=== PATIENT | male | born 1980 | race African-American/Black ===

== ENCOUNTER 2016-10-25 04:37 | Inpatient (IN) | payer SELFPAY ==
[~2016-10-25] VITALS: Ht 177.8 cm; Wt 81.8 kg
[2016-10-25] VITALS (26 sets, daily range): BP systolic 111–158; BP diastolic 64–98
[2016-10-25] MEDS ORDERED: ETOMIDATE 2 MG/ML VIAL IV ONE ×2 (05:00→11:26)
[2016-10-25] MEDS ORDERED: ROCURONIUM BROMIDE 100 MG/10 ML VIAL IV ONE (05:00)
[2016-10-25 05:18] LABS: BASOPHILS % (AUTO) 0.2 % (0.0-2.0); DIFF TOTAL % 100 %; EOSINOPHILS # (AUTO) 0.1 /CMM (0.0-0.7); EOSINOPHILS % (AUTO) 0.8 % (0.0-6.0); HEMATOCRIT 45 % (39-51); LYMPHOCYTES # (AUTO) 2.1 /CMM (0.8-4.8); LYMPHOCYTES % (AUTO) 25.2 % (20.0-44.0); MEAN CORPUSCULAR HEMOGLOBIN 30 PG (26.0-33.0); MEAN CORPUSCULAR HGB CONC 33 g/dl (31.0-36.0); MEAN CORPUSCULAR VOLUME 91 fL (80-96); MONOCYTES # (AUTO) 0.3 /CMM (0.1-1.30); MONOCYTES % (AUTO) 3.1 % (2.0-12.0); NEUTROPHILS # (AUTO) 5.9 /CMM (1.8-8.9); NEUTROPHILS % (AUTO) 70.7 % (43.0-81.0); PLATELET COUNT (AUTO) 263 /CMM (150-450); RED BLOOD CELL COUNT(AUTO) 4.94 MIL/uL (4.5-6.0); WHITE BLOOD COUNT (AUTO) 8.3 K/uL (4.3-11.0)
[2016-10-25 05:28] LABS: KETONES,URINE NEGATIVE (NEGATIVE); LEUKOCYTE ESTERASE ,URINE NEGATIVE (NEGATIVE); PH,URINE 5.5 (5.0-8.0)
[2016-10-25 05:34] LABS: CANNABINOID, URINE NEGATIVE (NEGATIVE); PHENCYCLIDINE SCREEN,URINE NEGATIVE (NEGATIVE)
[2016-10-25 05:36] LABS: INR 0.95 (0.87-1.13); PROTHROMBIN TIME 10.3 SECS (9.5-12.7); TROPONIN I < 0.017 ng/mL (0.00-0.056)
[2016-10-25 05:43] LABS: ANION GAP 17 (5-14); CALCIUM, SERUM 9.1 mg/dL (8.5-10.1); CARBON DIOXIDE 22 mmol/L (21-32); CHLORIDE 104 mmol/L (98-107); CREATININE 1.1 mg/dL (0.6-1.3); GFR 92 mL/min (>60); GLUCOSE 132 mg/dL (74-106); POTASSIUM 3.7 mmol/L (3.5-5.1); SODIUM SERUM 139 mmol/L (136-145); UREA NITROGEN, BLOOD 9 mg/dL (7-18)
[2016-10-25 05:45] LABS: ADD UA MICROSCOPIC YES
[2016-10-25 05:48] LABS: ADD URINE CULTURE NO; RBC,URINE NONE SEEN /HPF (0-2); WBC,URINE NONE SEEN /HPF (0-3)
[2016-10-25 05:49] LABS: ALANINE AMINOTRANSFERASE 52 U/L (12-78); ALBUMIN 4.1 g/dL (3.4-5.0); ASPARTATE AMINOTRANSFERASE 30 U/L (15-37); BILIRUBIN,TOTAL 0.2 mg/dL (0.2-1.0); SALICYLATE 3.8 mg/dL (2.8-20.0); TOTAL PROTEIN, SERUM 8.2 g/dL (6.4-8.2)
[2016-10-25 05:50] LABS: ACETAMINOPHEN 0 ug/ml (10-30); INDIRECT BILIRUBIN 0.2 mg/dL (0.0-1.1)
[2016-10-25 06:25] LABS: ABG BASE EXCESS -3.5 mmol/L; ABG HCO3 24.1 mmol/L; ABG PCO2 52.9 mmHg (35.0-45.0); ABG PH 7.277 (7.350-7.450); ABG PO2 47.3 mmHg (75.0-100.0); ABG TOTAL HEMOGLOBIN 16.4 G/dL (13.5-18.0); ALLEN TEST A; O2Hb 77.4 % (94.0-97.0)
[2016-10-25] MEDS ORDERED: DIPH25TA50 PO (07:09)
[2016-10-25] MEDS ORDERED: OLAN7.5T3 PO (07:09)
[2016-10-25] MEDS ORDERED: IV SET PRIMARY PUMP SET 1 EA INFUS.SET MC ONE ×2 (07:40→22:50)
[2016-10-25] MEDS ORDERED: IV NS 0.9% 1,000 ML IV PRN (08:30)
[2016-10-25] MEDS: PROPOFOL 100 ML IV PRN ×7 (08:48→23:16)
[2016-10-25 08:50] LABS: ABG BASE EXCESS -4.2 mmol/L; ABG HCO3 21.6 mmol/L; ABG PCO2 42.3 mmHg (35.0-45.0); ABG PH 7.326 (7.350-7.450); ABG PO2 159.6 mmHg (75.0-100.0); ABG TOTAL HEMOGLOBIN 15.5 G/dL (13.5-18.0); ALLEN TEST Pass; O2Hb 94.3 % (94.0-97.0)
[2016-10-25] MEDS ORDERED: ONDANSETRON HCL/PF 4 MG/2 ML VIAL IVP PRN (09:00)
[2016-10-25] MEDS ORDERED: ACETAMINOPHEN 650 MG/SUPP.RECT RC PRN (09:00)
[2016-10-25] MEDS ORDERED: PROPOFOL 100 ML IV PRN (09:00)
[2016-10-25] MEDS: ENOXAPARIN SODIUM 40 MG/0.4 ML DISP.SYRIN SQ SCH (09:49)
[2016-10-25] MEDS: IV D5/0.45 NACL 1,000 ML IV PRN ×2 (09:49→23:16)
[2016-10-25] MEDS ORDERED: ROCURONIUM BROMIDE 50 MG/5 ML IV ONE (11:26)
[2016-10-25] MEDS ORDERED: FEE PK DOSING 1 MIN EA MC ONE (11:27)
[2016-10-25] MEDS ORDERED: SECONDARY IV SET 1 EA INFUS.SET MC ONE (13:11)
[2016-10-25] MEDS: PIPERACILLIN /TAZOBACTAM 3.375 G in IV D5W 50 ML IV SCH ×3 (13:15→23:15)
[2016-10-25] MEDS ORDERED: ACETAMINOPHEN 325 MG TABLET MC PRN (19:00)
[2016-10-26] VITALS (32 sets, daily range): BP systolic 89–170; BP diastolic 53–108
[2016-10-26] MEDS ORDERED: PROPOFOL 100 ML IV ONE (03:41)
[2016-10-26] MEDS: PROPOFOL 100 ML IV PRN (03:46)
[2016-10-26 05:19] LABS: BASOPHILS % (AUTO) 0.5 % (0.0-2.0); DIFF TOTAL % 100 %; EOSINOPHILS # (AUTO) 0.4 /CMM (0.0-0.7); EOSINOPHILS % (AUTO) 4.4 % (0.0-6.0); HEMATOCRIT 47 % (39-51); HEMOGLOBIN 15.7 g/dL (13.5-17.5); LYMPHOCYTES % (AUTO) 23.6 % (20.0-44.0); MEAN CORPUSCULAR HEMOGLOBIN 30 PG (26.0-33.0); MEAN CORPUSCULAR HGB CONC 33 g/dl (31.0-36.0); MEAN CORPUSCULAR VOLUME 91 fL (80-96); MONOCYTES # (AUTO) 0.7 /CMM (0.1-1.30); MONOCYTES % (AUTO) 7.8 % (2.0-12.0); NEUTROPHILS # (AUTO) 5.4 /CMM (1.8-8.9); NEUTROPHILS % (AUTO) 63.7 % (43.0-81.0); PLATELET COUNT (AUTO) 280 /CMM (150-450); WHITE BLOOD COUNT (AUTO) 8.4 K/uL (4.3-11.0)
[2016-10-26 05:36] LABS: ALBUMIN 3.8 g/dL (3.4-5.0); BILIRUBIN,TOTAL 0.4 mg/dL (0.2-1.0); CREATININE 1.4 mg/dL (0.6-1.3); PHOSPHORUS 3.8 mg/dL (2.5-4.9); POTASSIUM 3.9 mmol/L (3.5-5.1); TOTAL PROTEIN, SERUM 7.8 g/dL (6.4-8.2)
[2016-10-26 06:11] LABS: THYROID STIMULATING HORMONE 2.437 uIU/mL (0.358-3.74)
[2016-10-26] MEDS: PIPERACILLIN /TAZOBACTAM 3.375 G in IV D5W 50 ML IV SCH ×2 (06:22→12:00)
[2016-10-26] MEDS: ENOXAPARIN SODIUM 40 MG/0.4 ML DISP.SYRIN SQ SCH (08:27)
[2016-10-26] MEDS ORDERED: MAGNESIUM OXIDE 400 MG TABLET NG SCH (09:00)
[2016-10-26] MEDS ORDERED: FOLIC ACID 1 MG TABLET NG SCH (09:00)
[2016-10-26] MEDS ORDERED: THIAMINE HCL 100 MG TABLET NG SCH (09:00)
[2016-10-26 09:45] LABS: ABG BASE EXCESS 1.5 mmol/L; ABG HCO3 25.9 mmol/L; ABG PCO2 40.3 mmHg (35.0-45.0); ABG PH 7.426 (7.350-7.450); ABG PO2 93.2 mmHg (75.0-100.0); AaDO2 73.4 mmHg; O2Hb 94.7 % (94.0-97.0)
[2016-10-26] MEDS ORDERED: NAPROXEN 500 MG TABLET PO SCH (13:30)
[2016-10-26] MEDS ORDERED: ACETAMINOPHEN 650 MG/20.3 ML UDC NG ONE (16:30)
== END 2016-10-26 16:40 | disposition home or self-care (01) | DRG 917 ==
LOC: ER 04:42 → ICU 07:24
PROVIDERS: ADMIT Nurse Practitioner Acute Care; ATTEND Nurse Practitioner Acute Care
DX: T43.591A Poisoning by other antipsychotics and neuroleptics, accidental (unintentional), initial encounter (principal); J96.92 Respiratory failure, unspecified with hypercapnia; I10 Essential (primary) hypertension; F31.9 Bipolar disorder, unspecified; F10.20 Alcohol dependence, uncomplicated; F41.9 Anxiety disorder, unspecified; F14.10 Cocaine abuse, uncomplicated; T40.5X1A Poisoning by cocaine, accidental (unintentional), initial encounter; T51.8X1A Toxic effect of other alcohols, accidental (unintentional), initial encounter; Y92.9 Unspecified place or not applicable
CPT/HCPCS: 31720; 36415; 36600; 70450-TC; 71010-TC; 72125-TC; 73080-TC; 80048-TC; 80053-TC; 80061-TC; 80076-TC; 80305; 81000-TC; 82140-TC; 82803-TC; 83735-TC; 84100-TC; 84443-TC; 84484-TC; 85025-TC; 85730-TC; 87081-TC; 93307-TC; 94003-TC; 94760-TC; 94799-TC; A4606; G0480; G6039-TC; J1650; J2543; J3490; J7030; J7060; Z7610

== ENCOUNTER 2021-03-18 03:43 | Emergency (ER) | payer MEDICAID ==
[~2021-03-18] VITALS: Ht 177.8 cm; Wt 81.6 kg
[~2021-03-18 03:43] MED LIST: OLAN7.5T3 PO; [UNRECOGNIZED DRUG - CODE] PO
[2021-03-18] MEDS ORDERED: OLANZAPINE 5 MG TABLET PO ONE (04:00)
[2021-03-18] MEDS ORDERED: OLANZAPINE 5 MG TABLET ONE (04:09)
--- NOTE | 2021-03-18 04:22 | NUR ---
PT REFUSING URINE TEST. WILL CONT TO MONITOR PT.
--- NOTE | 2021-03-18 06:12 | NUR ---
pt ok to discharge per dr kim. Patient discharged to home in stable condition. Written and verbal after care instructions given. Patient verbalizes understanding of instruction.Patient is awake and alert to self, day, and place. Pt ambulatory with a steady gait
[2021-03-18 06:20] VITALS: BP 145/85
== END 2021-03-18 06:20 | disposition home or self-care (01) ==
LOC: ER 03:45
DX: F14.10 Cocaine abuse, uncomplicated (principal); Z79.899 Other long term (current) drug therapy

== ENCOUNTER 2021-05-06 05:12 | Emergency (ER) | payer OTHER, MEDICAID ==
[~2021-05-06] VITALS: Ht 182.9 cm; Wt 65.8 kg
--- NOTE | 2021-05-06 05:15 | NUR ---
Pt bibra 839 c/o etoh and rt eyebrow lac. Pt refusing to answer questions. Per ems, pt threw himself onto the assisted floor and cut his eye. [employer] at bedside. Pt attached to monitor and pox. Pt given blanket and call light
[2021-05-06] MEDS ORDERED: TDAP [DIPH/PERTUSSIS/TET] 0.5 ML VIAL IM ONE ×2 (06:00→06:43)
[2021-05-06] MEDS ORDERED: LIDOCAINE 1%-EPI 1:100,000 20 ML VIAL TP ONE (06:00)
[2021-05-06] MEDS ORDERED: LIDOCAINE 1%-EPI 1:100,000 20 ML VIAL ONE (06:43)
--- NOTE | 2021-05-06 08:54 | NUR ---
Patient left in custody, stable accompanied by [employer], in no distress.
[2021-05-06 08:55] VITALS: BP 128/71
== END 2021-05-06 08:55 ==
LOC: ER 05:13
DX: S01.111A Laceration without foreign body of right eyelid and periocular area, initial encounter (principal); F10.129 Alcohol abuse with intoxication, unspecified; Z79.899 Other long term (current) drug therapy; W18.39XA Other fall on same level, initial encounter; Y93.89 Activity, other specified; Y92.89 Other specified places as the place of occurrence of the external cause; Y99.8 Other external cause status; Y90.9 Presence of alcohol in blood, level not specified
CPT/HCPCS: 12011; 70450; 90471; 90715; 99284; J3490

== ENCOUNTER 2021-05-10 09:40 | Emergency (ER) | payer MEDICAID, OTHER ==
[~2021-05-10] VITALS: Ht 172.7 cm; Wt 83.9 kg
[2021-05-10 09:52] VITALS: BP 129/76
--- NOTE | 2021-05-10 09:55 | NUR ---
Patient here for c/o LUE "numbness" unable to move x 5 days. denies any recent trauma admits to drinking "etoh" everyday. Patient alert and oriented x4. O sob or respiratory distress noted. Awaiting MD tenorio.
--- NOTE | 2021-05-10 10:02 | NUR ---
Dr Painter at bedside
--- NOTE | 2021-05-10 10:10 | NUR ---
Patient eloped from facility. ER MD notified.
== END 2021-05-10 10:13 | disposition left against medical advice (07) ==
LOC: ER 09:45
DX: G56.32 Lesion of radial nerve, left upper limb (principal); F10.10 Alcohol abuse, uncomplicated; Y90.9 Presence of alcohol in blood, level not specified; Z79.899 Other long term (current) drug therapy

== ENCOUNTER 2021-05-30 12:57 | Emergency (ER) | payer MEDICAID ==
[~2021-05-30] VITALS: Ht 180.3 cm; Wt 80.7 kg
[2021-05-30 14:05] VITALS: BP 133/85
--- NOTE | 2021-05-30 14:31 | NUR ---
SEEN AND EXAMINED BY DR MONTOYA. PT IS AAOX3. AMBULATORY W/ STEADY GAIT. WAS PROVIDED W/ A BUS PASS. DISCHARGE IN STABLE CONDITION.
--- NOTE | 2021-05-30 14:32 | NUR ---
RE-EVALUATED BY MALINDA TINAJERO,TAP CARD GIVEN REQUESTED, AMBULATED WITH STEADY GAIT
== END 2021-05-30 14:33 | disposition home or self-care (01) ==
LOC: ER 13:05
DX: F10.129 Alcohol abuse with intoxication, unspecified (principal); F12.929 Cannabis use, unspecified with intoxication, unspecified; Z79.899 Other long term (current) drug therapy; Y90.9 Presence of alcohol in blood, level not specified

== ENCOUNTER 2021-07-19 20:00 | Emergency (ER) | payer MEDICAID ==
[~2021-07-19] VITALS: Ht 177.8 cm; Wt 79.4 kg
[2021-07-19 20:09] VITALS: BP 138/72
[2021-07-19] MEDS ORDERED: NALO4SPR NS (21:52)
== END 2021-07-19 22:31 | disposition home or self-care (01) ==
LOC: ER 20:01
DX: F14.129 Cocaine abuse with intoxication, unspecified (principal); Z79.899 Other long term (current) drug therapy

== ENCOUNTER 2022-01-22 01:06 | Inpatient (IN) | payer MEDICAID ==
[~2022-01-22] VITALS: Ht 177.8 cm; Wt 73.2 kg
[~2022-01-22 01:06] MED LIST changes: +NALO4SPR NS
[2022-01-22] MEDS ORDERED: methylPREDNISolone SOD SUCC 125 MG/2ML VIAL ONE ×2 (01:09→09:03)
[2022-01-22] MEDS ORDERED: EPINEPHRINE (1:1000) 1 MG/ML AMPUL ONE (01:09)
[2022-01-22] MEDS ORDERED: FAMOTIDINE/PF INJ 20 MG/2 ML VIAL IV ONE ×3 (01:09→01:30)
[2022-01-22] MEDS ORDERED: diphenhydrAMINE HCL 50 MG/ML VIAL ONE (01:10)
--- NOTE | 2022-01-22 01:20 | NUR ---
BIBSELF C/O ALLERGIC REACTION S/P WAKING UP. PT STATED HE ATE FROZEN GRAPES AROUND 10PM. PATIENT ALERT AND ORIENTED X3. AMBULATORY C/O SOB PLACED ON A MONITOR AND POX IN BED 09 AWAITING MD CIFUENTES.
--- NOTE | 2022-01-22 01:24 | NUR ---
BLOOD COLLECTED AND SENT TO LAB
[2022-01-22] MEDS ORDERED: methylPREDNISolone SOD SUCC 125 MG/2ML VIAL IV ONE (01:30)
[2022-01-22] MEDS ORDERED: IV NS 0.9% 1,000 ML BAG IV ONE (01:30)
[2022-01-22] MEDS ORDERED: EPINEPHRINE (1:1000) MDV 30 MG/30ML VIAL SUBCUT ONE (01:30)
[2022-01-22] MEDS ORDERED: diphenhydrAMINE HCL 50 MG/ML VIAL IV ONE (01:30)
--- NOTE | 2022-01-22 01:31 | NUR ---
COVID SWAB DONE AND SENT TO LAB
[2022-01-22 01:41] LABS: BASOPHILS # (AUTO) 0.1 K/uL (0.0-0.2); BASOPHILS % (AUTO) 1.4 % (0.0-2.0); EOSINOPHILS % (AUTO) 2.8 % (0.0-6.0); HEMATOCRIT 50 % (39-51); HEMOGLOBIN 16.6 g/dL (13.5-17.5); LYMPHOCYTES # (AUTO) 5.2 K/uL (0.8-4.8); LYMPHOCYTES % (AUTO) 56.8 % (20.0-44.0); MEAN CORPUSCULAR HGB CONC 33 g/dl (31.0-36.0); MEAN CORPUSCULAR VOLUME 94 fL (80-96); MONOCYTES # (AUTO) 0.7 K/uL (0.1-1.30); MONOCYTES % (AUTO) 7.2 % (2.0-12.0); NEUTROPHILS # (AUTO) 2.9 K/uL (1.8-8.9); NEUTROPHILS % (AUTO) 31.8 % (43.0-81.0); PLATELET COUNT (AUTO) 357 K/uL (150-450); RED BLOOD CELL COUNT(AUTO) 5.27 MIL/uL (4.5-6.0); WHITE BLOOD COUNT (AUTO) 9.2 K/uL (4.3-11.0)
[2022-01-22 01:56] LABS: CALCIUM, SERUM 8.7 mg/dL (8.5-10.1); CREATININE 1.3 mg/dL (0.6-1.3); POTASSIUM 3.7 mmol/L (3.5-5.1)
[2022-01-22 02:06] LABS: ALBUMIN 3.4 g/dL (3.4-5.0); BILIRUBIN,TOTAL 0.2 mg/dL (0.2-1.0); TOTAL PROTEIN, SERUM 7.2 g/dL (6.4-8.2)
--- NOTE | 2022-01-22 02:51 | NUR ---
SPOKE TO SERVER SOFTWARE ENGINEER JOSE
--- NOTE | 2022-01-22 03:10 | NUR ---
DR QUIÑONES FROM [facility] ON THE PHONE WITH DR SCHRADER
--- NOTE | 2022-01-22 03:38 | NUR ---
PT IS RESTING IN BED , REPORTED FEELING MUCH BETTER.ASKED ABOUT HOME MEDS. PATIENT REPORTED HE IS NOT TAKING ANY MEDICATION AT HOME
[2022-01-22] MEDS ORDERED: diphenhydrAMINE HCL 50 MG/ML VIAL IV PRN (04:00)
[2022-01-22] MEDS ORDERED: IV D5/ 0.9% NACL 1,000 ML IV PRN (04:00)
[2022-01-22] MEDS ORDERED: ACETAMINOPHEN 325 MG TABLET PO PRN (04:00)
--- NOTE | 2022-01-22 04:22 | NUR ---
CALLED [facility] FOR IMAGING READ
[2022-01-22 05:27] LABS: BASOPHILS % (AUTO) 0.2 % (0.0-2.0); EOSINOPHILS % (AUTO) 0.1 % (0.0-6.0); HEMATOCRIT 45 % (39-51); HEMOGLOBIN 15.2 g/dL (13.5-17.5); LYMPHOCYTES # (AUTO) 0.9 K/uL (0.8-4.8); LYMPHOCYTES % (AUTO) 6.3 % (20.0-44.0); MEAN CORPUSCULAR HGB CONC 34 g/dl (31.0-36.0); MEAN CORPUSCULAR VOLUME 94 fL (80-96); MONOCYTES # (AUTO) 0.4 K/uL (0.1-1.30); MONOCYTES % (AUTO) 2.6 % (2.0-12.0); NEUTROPHILS # (AUTO) 13.5 K/uL (1.8-8.9); NEUTROPHILS % (AUTO) 90.8 % (43.0-81.0); PLATELET COUNT (AUTO) 269 K/uL (150-450); RED BLOOD CELL COUNT(AUTO) 4.83 MIL/uL (4.5-6.0); WHITE BLOOD COUNT (AUTO) 14.8 K/uL (4.3-11.0)
[2022-01-22 05:40] LABS: CALCIUM, SERUM 8.6 mg/dL (8.5-10.1); CREATININE 1.1 mg/dL (0.6-1.3); POTASSIUM 4.2 mmol/L (3.5-5.1)
[2022-01-22] MEDS ORDERED: methylPREDNISolone SOD SUCC 40 MG/ML VIAL IV SCH (09:00)
--- NOTE | 2022-01-22 09:40 | NUR ---
BED GIVEN 304-1
--- NOTE | 2022-01-22 10:23 | NUR ---
REPORT GIVEN TO CRYSTAL FOR JUJU
[2022-01-22] MEDS ORDERED: PRED20TA PO (11:39)
[2022-01-22 11:55] VITALS: BP 142/72
--- NOTE | 2022-01-22 11:55 | NUR ---
CHEMICAL DEPENDENCY PROFESSIONALWEIGHBRIDGE OPERATOR NOTES RECEIVED PATIENT FROM ER VIA RFAIRGROVE ENDORSED BY KIRT ISSA. PATIENT IS AWAKE AND A/O X4. ON ROOM AIR TOLERATING WELL. NO SOB NOTED. NOT IN DISTRESS. WITH NO COMPLAINTS OF PAIN OR DISCOMFORT AT THIS TIME. PER PATIENT, HE HAD AN ALLERGIC REACTION FROM THE GRAPES HE ATE. THOUGH, RIGHT NOW HE IS FEELING BETTER. WITH IV ACCESS AT RIGHT AC G18 SALINE LOCKED, PATENT AND INTACT AND AT LEFT FOREARM G20 WITH D5NS AT 75ML/HR INFUSING WELL. SKIN IS INTACT. SAFETY MEASURES IN PLACED, CALL LIGHT WITHIN REACH. BED ON LOWEST LOCKED POSITION, SIDE RAILS UP X2. WILL CONTINUE TO MONITOR.
--- NOTE | 2022-01-22 12:09 | NUR ---
PT TRANSPORTED TO [facility]LO[facility] IN STABLE CONDITION WITH ACLS PROTOCOLS IN PLACE. PT ABLE TO AMBULATE TO HIS BED ON HIS OWN.
--- NOTE | 2022-01-22 18:00 | NUR ---
TESTER COMPRESSED GASES NOTES PATIENT WAS SEEN BY DR. GRIFFITHS AND ORDERED PATIENT FOR DISCHARGE TO HOME. DISCHARGE INSTRUCTION AND EDUCATION PROVIDED TO PATIENT AND EXPLAINED MEDICATIONS AND PRESCRIPTIONS. PATIENT VERBALIZED UNDERSTANDING. DISCHARGE FORM AND BELONGINGS LIST FORM SIGNED BY PATIENT. ALL BELONGINGS ACCOUNTED FOR. NAME WRIST BAND AND IV LINE REMOVED. NO SKIN ISSUES NOTED. PATIENT WAS ACCOMPANIED TO THE [facility] AMBUL[facility] AND LEFT VIA PRIVATE CAR IN STABLE CONDITION. MD AND CHARGE NURSE ARE AWARE OF THE DISCHARGE.
== END 2022-01-22 18:06 | disposition home or self-care (01) | DRG 811 ==
LOC: ER 01:08 → TRANSITION 04:53 → TELE 11:25
PROVIDERS: ADMIT Internal Medicine; ATTEND Internal Medicine
DX: T78.04XA Anaphylactic reaction due to fruits and vegetables, initial encounter (principal); F14.90 Cocaine use, unspecified, uncomplicated; F17.200 Nicotine dependence, unspecified, uncomplicated; F31.9 Bipolar disorder, unspecified; F41.9 Anxiety disorder, unspecified; I10 Essential (primary) hypertension; Z20.822 Contact with and (suspected) exposure to COVID-19; Z79.899 Other long term (current) drug therapy; Z80.9 Family history of malignant neoplasm, unspecified
CPT/HCPCS: 36415; 71045-TC; 80048-TC; 80076-TC; 85025-TC; 87081-TC; C9803; G0378; J0171; J1200; J2920; J2930; J3490; J7030; J7042

== ENCOUNTER 2023-08-21 15:37 | Emergency (ER) | payer MEDICAID, OTHER ==
[~2023-08-21] VITALS: Ht 177.8 cm; Wt 77.1 kg
[~2023-08-21 15:37] MED LIST changes: -NALO4SPR NS; -OLAN7.5T3 PO; +PRED20TA PO; -[UNRECOGNIZED DRUG - CODE] PO
[2023-08-21 16:02] VITALS: BP 181/101; TEMP 97.9
[2023-08-21] MEDS ORDERED: KETOROLAC TROMETHAMINE INJ 30 MG/ML VIAL ONE (16:27)
[2023-08-21] MEDS ORDERED: GABAPENTIN 100 MG CAPSULE ONE (16:27)
[2023-08-21] MEDS ORDERED: CYCLOBENZAPRINE 10 MG TABLET ONE (16:27)
[2023-08-21] MEDS ORDERED: GABAPENTIN 100 MG CAPSULE PO ONE (16:30)
[2023-08-21] MEDS ORDERED: CYCLOBENZAPRINE 10 MG TABLET PO ONE (16:30)
[2023-08-21] MEDS ORDERED: KETOROLAC TROMETHAMINE INJ 60 MG/2 ML VIAL IM ONE (16:30)
[2023-08-21] MEDS ORDERED: KETO10TA2 PO (17:07)
[2023-08-21] MEDS ORDERED: CYCL5TAB PO (17:07)
[2023-08-21] MEDS ORDERED: GABA-532 PO (17:07)
[2023-08-21 17:23] VITALS: O2SAT 100
== END 2023-08-21 17:26 | disposition home or self-care (01) ==
LOC: ER 15:37
DX: M54.12 Radiculopathy, cervical region (principal); F17.200 Nicotine dependence, unspecified, uncomplicated; Z79.899 Other long term (current) drug therapy
CPT/HCPCS: 99283; 96372; J1885

== ENCOUNTER → 2024-03-04 | Emergency (ER) | payer MEDICAID, OTHER ==
[~2024-03-04] VITALS: Ht 175.3 cm; Wt 82.1 kg
[~2024-03-04] MED LIST changes: +CYCL5TAB PO; +GABA-532 PO; +KETO10TA2 PO
[2024-03-04] MEDS: IV NS 0.9% 1,000 ML BAG IV ONE (10:28)
[2024-03-04 10:30] LABS: BASOPHILS # (AUTO) 0.1 K/uL (0.0-0.2); BASOPHILS % (AUTO) 1.2 % (0.0-2.0); EOSINOPHILS # (AUTO) 0.1 K/uL (0.0-0.7); EOSINOPHILS % (AUTO) 0.7 % (0.0-6.0); HEMATOCRIT 44 % (39-51); HEMOGLOBIN 14.9 g/dL (13.5-17.5); LYMPHOCYTES # (AUTO) 3.9 K/uL (0.8-4.8); LYMPHOCYTES % (AUTO) 47.7 % (20.0-44.0); MEAN CORPUSCULAR HEMOGLOBIN 31 PG (26.0-33.0); MEAN CORPUSCULAR HGB CONC 34 g/dl (31.0-36.0); MEAN CORPUSCULAR VOLUME 90 fL (80-96); MONOCYTES # (AUTO) 0.6 K/uL (0.1-1.30); MONOCYTES % (AUTO) 7.2 % (2.0-12.0); NEUTROPHILS # (AUTO) 3.5 K/uL (1.8-8.9); NEUTROPHILS % (AUTO) 43.2 % (43.0-81.0); PLATELET COUNT (AUTO) 301 K/uL (150-450); RED BLOOD CELL COUNT(AUTO) 4.86 MIL/uL (4.5-6.0); RED CELL DISTRIBUTION WIDTH 13.2 % (11.5-15.0); WHITE BLOOD COUNT (AUTO) 8.1 K/uL (4.3-11.0)
[2024-03-04 10:40] LABS: CALCIUM, SERUM 9.6 mg/dL (8.5-10.1); CARBON DIOXIDE 22 mmol/L (21-32); CHLORIDE 103 mmol/L (98-107); CREATININE 0.9 mg/dL (0.6-1.3); GLUCOSE 99 mg/dL (74-106); POTASSIUM 3.9 mmol/L (3.5-5.1); SODIUM SERUM 135 mmol/L (136-145); UREA NITROGEN, BLOOD 6 mg/dL (7-18)
[2024-03-04] MEDS: LORAZEPAM INJ 2 MG/ML VIAL IV ONE (11:01)
[2024-03-04] MEDS: KETOROLAC TROMETHAMINE 15 MG/ML VIAL IV ONE (11:15)
[2024-03-04 11:41] VITALS: BP 149/89; TEMP 98.2; O2SAT 100
== END | disposition left against medical advice (07) ==
LOC: ER 09:50
DX: R07.2 Precordial pain (principal); R00.0 Tachycardia, unspecified; I10 Essential (primary) hypertension; F19.10 Other psychoactive substance abuse, uncomplicated; F17.200 Nicotine dependence, unspecified, uncomplicated; F10.10 Alcohol abuse, uncomplicated; Y90.9 Presence of alcohol in blood, level not specified
CPT/HCPCS: 99285; 96360; 93005; 71045; 85025; 80048; 85378; 36415; 84484; 80320; J7030; G0480; J1885; J2060

== ENCOUNTER 2025-09-01 23:23 | Emergency (ER) | payer MEDICAID ==
[~2025-09-01] VITALS: Ht 177.8 cm; Wt 81.6 kg
[2025-09-02] MEDS ORDERED: PRED50TA PO (00:18)
[2025-09-02] MEDS ORDERED: ACYC-108 PO (00:18)
[2025-09-02] MEDS ORDERED: GABA-532 PO (00:19)
[2025-09-02 01:43] VITALS: BP 164/96; TEMP 98.6; O2SAT 97
== END 2025-09-02 01:43 | disposition home or self-care (01) ==
LOC: ER 23:25
DX: B02.9 Zoster without complications (principal); J06.9 Acute upper respiratory infection, unspecified; F17.200 Nicotine dependence, unspecified, uncomplicated; Z91.048 Other nonmedicinal substance allergy status; Z79.899 Other long term (current) drug therapy; Z20.822 Contact with and (suspected) exposure to COVID-19
CPT/HCPCS: 99284; 71045; 87426; 87804 ×2; A6403